=== PATIENT | female | born 1935 | race Caucasian/White ===

== ENCOUNTER 2017-06-16 11:38 | Inpatient (IN) | payer MEDICARE, OTHER ==
[2017-06-15 23:00] VITALS: BP 123/72
[~2017-06-16] VITALS: Ht 243.8 cm; Wt 65.3 kg
[2017-06-16] VITALS (10 sets, daily range): BP systolic 106–156; BP diastolic 54–90
[~2017-06-16 11:38] MED LIST: ACTOS30 MG OR; ACTOS30 MG PO; ALEVE220 MG PO; ALPRAZOLAM0.5 MG PO; AMLODIPINE BESYL5 MG PO; AMLODIPINE5 MG PO; AMOXICILLIN500 MG PO; AREDS2 PO; ASPIRIN ADULT L81 M2 PO; BETIMOL0.5 % OU; BL ADULT ASA81 MG PO; CALCI17 PO; CALCIU1 PO; CALCIUM600 M1 PO; CONTOUR NEXT TEST ST VI; CONTOUR TEST STRIPS OTHER; COZAAR100 MG PO; EFFEXOR37.5 MG PO; FLUZONE1 M1 IM; GENTAMICIN15 ML/BTL OP; JANUVIA100 MG PO; LANTUS100 MG/ML SC; LIPITOR20 M1 PO; LIPITOR20 MG OR; LIPITOR20 MG PO; LISINOPRIL2.5 MG PO; LOSARTAN POT50 MG PO; METFORMIN500 M1 PO; METFORMIN500 MG PO; MULTI-VITAMIN DAILY PO; MULTIVITAM10 OR; MULTIVITAMIN PO; NABUMETONE500 MG PO; NAPROSYN500 MG PO; NAPROXEN500 MG PO; OMEPRAZOLE20 MG PO; ONE-A-DAY PO; REXULTI0.5 MG PO; RISPERDAL0.25 MG PO; TEST STRIP; TIMOLOL 0.25%5 ML OU; TRAMADOL HCL50 MG PO; VENLAFAXINE HCL75 M2 PO; VENLAFAXINE150 MG PO; VITAMIN C TR1000 MG PO; VITAMIN D1000 UNI1 OR; VITAMIN D2000 UNI1 PO; VITAMIN D2000 UNIT PO; ZOLOFT100 MG PO; [UNRECOGNIZED DRUG - OTHER] PO; areds
--- NOTE | 2017-06-16 11:50 | NUR ---
PT TO ROOM FOR EXAM
[2017-06-16] MEDS ORDERED: TIMOLOL 0.5%5 ML OU (12:15)
--- NOTE | 2017-06-16 12:15 | NUR ---
INFORMED OF HR MAINTAINING IN THE 140'S. AWAITING NEW ORDERS.
[2017-06-16] MEDS ORDERED: VENLAFAXINE HCL75 M1 PO (12:19)
[2017-06-16 12:23] LABS: HEMATOCRIT 37.6 % (37.0-47.0); HEMOGLOBIN 12.1 g/dl (12.0-16.0); IMMATURE GRANULOCYTES 0.3 % (0.0-1.0); MEAN CELL VOLUME 93.1 fL CALC (80.0-100.0); MEAN CORPUSCULAR HGB CONC 32.2 g/L CALC (32.0-36.0); NEUT# 6.14 thou/uL (2.00-7.15); RED BLOOD COUNT 4.04 mill/uL (4.20-5.60); RED CELL DISTRI WIDTH 12.4 % (11.5-15.5)
[2017-06-16 12:35] LABS: ACT PARTIAL THROMBO TIME 28.2 SECONDS (20.0-32.5); PROTHROMBIN TIME 11.5 SECONDS (9.0-12.5)
[2017-06-16 12:42] LABS: ALBUMIN 4.4 g/dL (3.2-5.0); ALKALINE PHOSPHATASE 55 u/l (38-126); ANION GAP 18 (6-22 (CALC)); BILIRUBIN, TOTAL 0.4 mg/dL (0.0-1.4); BUN 33 mg/dL (8-23); BUN/CREATININE RATIO 38 (12-20 (CALC)); CARBON DIOXIDE 26 mmol/l (22-30); CHLORIDE 103 mmol/l (95-108); CREATININE 0.9 mg/dL (0.5-1.0); GFR 60 ML/MIN (>=60 (CALC)); GFR FOR AFR.AMER. > 60 ML/MIN (>=60 (CALC)); POTASSIUM 5.1 mmol/l (3.5-5.1); SGOT/AST 30 u/l (9-36); SGPT/ALT 25 u/l (11-66); SODIUM 143 mmol/l (137-146); TOTAL PROTEIN 7.7 g/dL (6.3-8.2)
[2017-06-16 12:45] LABS: MYOGLOBIN 44 ng/mL (0 - 62)
--- NOTE | 2017-06-16 13:00 | NUR ---
20 MG OF CARDIZEM IVP, HR BELOW 100 BPM AT THIS TIME. SECOND EKG COMPLETED, PAITENT TOLERATED WELL, CONTINUES TO DENY ANY CHEST PAIN AND SOB. MD INFORMED. CARDIZEM DRIP ON HOLD. WILL CONTINUE TO MONITOR.
--- NOTE | 2017-06-16 13:21 | NUR ---
SBAR PRINTED TO FLOOR
--- NOTE | 2017-06-16 14:23 | NUR ---
PT CAME BY STRETCHER BY JUAN JOSÉ MURRAY. PT AMBULATED TO BED WITH MINIAL ASSISTANCES. ORIENTED TO CALL LIGHT AND SAFETY PPRECAUTIONS REINFORCED. PT VERBALIZED UNDERSTANDING. CALL LIGHT IN REACH.
--- NOTE | 2017-06-16 14:24 | NUR ---
REPORT GIVEN TO JUAN JOSÉ VENTURA.
--- NOTE | 2017-06-16 14:30 | NUR ---
Admission Note Report Given to: SBAR PRINTED TO FLOOR Transported by: Wheelchair X Stretcher Transported with: X Nurse Transporter X Patent IV O2 X Size Worker
--- NOTE | 2017-06-16 14:33 | NUR ---
PATIENT TRANSPORTED TO [facility] WITH TELE IN PLACE VIA STRETCHER. BEDSIDE REPORT GIVEN TO JUAN JOSÉ VENTURA. CARE RELINQUISHED.
--- NOTE | 2017-06-16 15:21 | NUR ---
ASSESSMENT DONE AND TELE IN PLACE. RESPS EVEN AND UNLABORED. A&O X3. PT DENIES PAIN AT THIS TIME. PT STATED THAT SHE HAD BM IN THE AM TODAY. #20 LFA THAT APPEARS HEALTHY AND NS INFUSING WELL. CALL LIGHT IN REACH.
--- NOTE | 2017-06-16 16:30 | NUR ---
ASSIST PT BACK TO BED FROM THE BATHROOM . WITH NO S/S OF DISTRESS NOTED ON PT. PT DENIES ANY OTHER NEEDS AT THIS TIME. CALL LIGHT IN REACH.
--- NOTE | 2017-06-16 17:55 | NUR ---
ER CALLED RE: PT HEART 14O AND HIGH 158. PT DENIES PAIN AT THIS TIME.
--- NOTE | 2017-06-16 17:57 | NUR ---
VS OBTAIN HEART 140 AND NOTIFIED WALI RE: HEART RATE.
--- NOTE | 2017-06-16 18:15 | NUR ---
CALLED [facility] TO CHECK WHEN CARDIEM WILL BE VERIFY.THEY STATED WILL DUE NOW.
--- NOTE | 2017-06-16 18:31 | NUR ---
CARDIEM GIVEN SEE EMAR FOR HEART RATE. JUAN JOSÉ PONCE AT BEDSIDE AND CALLED ER.
--- NOTE | 2017-06-16 18:41 | NUR ---
CALLED ER RE: PT HEART RATE PER [facility] PT HEART RATE IS 130. NOTIFIED WALI.
--- NOTE | 2017-06-16 18:50 | NUR ---
CALL DR. WEI BUT NO ANSWER LEFT A MESSAGE TO CALL BACK.
--- NOTE | 2017-06-16 19:05 | NUR ---
DR. WEI CALLED. TOLD RE: PT HEART RATE BEING 130 AFTER GIVEN CARDIEM. STATED PT TO BE TRANFER TO ICU.
--- NOTE | 2017-06-16 19:15 | NUR ---
PT TRANFER TO ICU BY BED AND TELE IN PLACE. GAVE REPORT TO JUAN JOSÉ LINTON FROM ICU RE: PT HEART RATE.
--- NOTE | 2017-06-16 19:15 | NUR ---
PT. ARRIVES FROM MED/SURG AT THIS TIME VIA BED. PLACED ON TELEMETRY AND FOUND TO BE IN A-FIB WITH RATE IN THE 140-160'S. PT. DENIES SYMPTOMS. DENIES CP OR SOB. MAE. LIU. NO NEURO DEFICITS NOTED. INTRODUCED SELF TO PATIENT AND ORIENTED TO ROOM AND MONITOR/CALL LIGHT SYSTEMS. PROVIDED WITH WATER AND UPDATED ON PLAN OF CARE FOR THE EVENING. LUNG SOUNDS CLEAR TO AUSCULTATION, NO EDEMA NOTED. RADIAL PULSES INTACT. CALL LIGHT PLACED WITHIN REACH AND WILL CONTINUE TO MONITOR.
--- NOTE | 2017-06-16 20:30 | NUR ---
PT. CONTINUES TO DENY PAIN OR NEED. CHANGED ORDERS FROM AMIODARONE DRIP TO CARDIZEM DRIP. WILL ADMINISTER MEDICATIONS WHEN PHARMACY PROFILES MEDICATION. PT. REMAINS STABLE AND PAIN FREE. VSS.
--- NOTE | 2017-06-16 21:15 | NUR ---
CARDIZEM BOLUS OF 10 MG GIVEN AT THIS TIME AND DRIP INITIATED AT 10 MG/HR. PT. REMAINS IN A-FIB BETWEEN 110-160. PT. DENIES SX AT THIS TIME. CALL LIGHT REMAINS WITHIN REACH. RESPS REMAIN EVEN AND UNLABORED. BP STABLE. WILL CONTINUE TO ASSESS.
--- NOTE | 2017-06-16 22:30 | NUR ---
PT. RESTING WITH EYES CLOSED. EASILY AROUSABLE TO LIGHT VERBAL STIMULI. CALL LIGHT REMAINS WITHIN REACH. RESPS REMAIN EVEN AND UNLABORED. CARDIZEM DRIP CONTINUES TO INFUSE AT 10 MG/HR. WILL CONTINUE TO MONITOR.
[2017-06-17] VITALS (21 sets, daily range): BP systolic 103–156; BP diastolic 51–101
--- NOTE | 2017-06-17 00:15 | NUR ---
PT. HR AND BP STABLE. HR IN THE 60-70'S REMAINS A-FIB. CARDIZEM DRIP DECREASED TO 5 MG/HR AT THIS TIME. WILL CONTINUE TO MONITOR AND ASSESS.
--- NOTE | 2017-06-17 02:35 | NUR ---
PT. RESTING IN BED IN NO DISTRESS. RESPS REMAIN EVEN AND UNLABORED. SKIN WARM AND DRY. CALL LIGHT REMAINS WITHIN REACH. WILL CONTINUE TO MONITOR.
--- NOTE | 2017-06-17 03:55 | NUR ---
PT. ASSISTED TO BEDSIDE COMMODE AT THIS TIME. AMBULATORY WITH STEADY GAIT FROM BED TO COMMODE. APPROX 700 CC OUT AT THIS TIME. REMAINED STABLE ON THE MONITOR. CALL LIGHT REMAINS WITHIN REACH. RESPS REMAIN EVEN AND UNLABORED. WILL CONTINUE TO MONITOR.
--- NOTE | 2017-06-17 04:57 | NUR ---
PT. SITTING UP IN BED IN NO DISTRESS. CALL LIGHT REMAINS WITHIN REACH. HR REMAINS STABLE A-FIB IN THE 70'S. CALL LIGHT REMAINS WITHIN REACH. WILL CONTINUE TO ASSESS.
[2017-06-17 05:44] LABS: ANION GAP 17 (6-22 (CALC)); BUN 20 mg/dL (8-23); BUN/CREATININE RATIO 27 (12-20 (CALC)); CALCULATED LDLCHOLESTEROL 53 mg/dL (62-129 (CALC)); CARBON DIOXIDE 25 mmol/l (22-30); CHLORIDE 109 mmol/l (95-108); CHOLESTEROL HDL RATIO 2.9 (<4.4 (CALC)); CREATININE 0.7 mg/dL (0.5-1.0); GFR > 60 ML/MIN (>=60 (CALC)); GFR FOR AFR.AMER. > 60 ML/MIN (>=60 (CALC)); HDL CHOLESTEROL 41 mg/dL (>=40); MAGNESIUM 1.5 mg/dL (1.6-2.3); POTASSIUM 4.4 mmol/l (3.5-5.1); SODIUM 146 mmol/l (137-146); TOTAL CHOLESTEROL 117 mg/dl (0-199); TOTAL TRIGLYCERIDES 118 mg/dl (30-149); VLDL CHOLESTROL 24 mg/dl (0-48 (CALC))
[2017-06-17 05:55] LABS: HEMATOCRIT 37.5 % (37.0-47.0); MEAN CELL VOLUME 94.5 fL CALC (80.0-100.0); MEAN CORPUSCULAR HGB 30.2 pG CALC (26.0-32.0); RED BLOOD COUNT 3.97 mill/uL (4.20-5.60); RED CELL DISTRI WIDTH 12.3 % (11.5-15.5)
--- NOTE | 2017-06-17 06:05 | NUR ---
PT. ACCUCHECK ON THE DRAW WAS 56. PT. DENIES SYMPTOMS. PROVIDED WITH APPLE JUICE AT THIS TIME PER HER REQUEST. DENIES OTHER COMPLAINTS. STATES SHE DID NOT TAKE ANY DIABETES MEDS LAST NIGHT.
--- NOTE | 2017-06-17 07:10 | NUR ---
PT ALERT AND ORIENTED SITTING UP IN BED, PT COMPLAINS OF MILD CHEST PAIN/PRESSURE WITH DEEP BREATHING AND GENERAL DISCOMFORT "AND IT SCARED ME A LITTLE BIT" AM ASSESSMENT COMPETED, SEE INTERVENTIONS, TELE READING SR (WILL ORDER EKG PT WAS IN A FIB) BP STABLE, TEMP 97.0 ACCU CHECK COMPLETED (PT IDDM) BS WAS 74, PT VERBALIZES BEING SAD RELATED TO ADMISSION (I JUST WENT FOR A REGULAR VISIT AND SHE TOLD ME I HAD TO COME INTO THE HOSPITAL) CARDIZEM PLACED ON HOLD RELATED TO CONVERSION, BS ACTIVE PT DENIES N/V OR ANY OTHER SYMPTOMS, TROPONIN ORDERED FOR [phone] TROP RESTULS WAS NEGATIVE, COMFORT MEASURES PROVIDED, SAFETY MEASURES REINFORCED, CALL SANDY WITHIN REACH, WILL MONITOR CLOSELY.
--- NOTE | 2017-06-17 07:25 | NUR ---
EKG COMPLETED PT SLIGHTLY TEARY EYED AND STATES DISCOMFORT HASN'T WORSENED, AND IS MINIMALLY IMPROVED, NO S/S OF DISTRESS NOTED, COMFORT MEASURES PROVIDED SET UP ASSIST FOR AM MEAL PROVIDED, CALL SANDY WITHIN REACH
--- NOTE | 2017-06-17 07:25 | NUR ---
PLACED ON NASAL CANNULA 2L FOR CARDIAC PROTOCOL
--- NOTE | 2017-06-17 07:55 | NUR ---
LAB BRUCE TROPONIN ORDERED, PT TOLERATED W/O INCIDENT, WILL START IV MAGENSIUM ORDERED, PT EDUCATED REGAREDING MEDICATION, REASON FOR ADMINISTRATION, EXPECTATIONS, AND POSSIBLE SIDE EFFECTS, PT VERBALIZES UNDERSTANDING.
--- NOTE | 2017-06-17 08:35 | NUR ---
TOLERATING MAGNESIUM IV W/O INCIDENT, APPETITE ADEQUATE FOR AM MEAL, CALL SANDY WITHIN REACH
--- NOTE | 2017-06-17 09:21 | NUR ---
IN TO SEE PATIENT, AWARE OF CP, CONVERSION TO SR, CARDIZEM GTT ON HOLD AND NEGATIVE REPEAT TROPONIN, PLAN OF CARE DISCUSSED.
--- NOTE | 2017-06-17 10:30 | NUR ---
Pt resting, wathcing television, states pain slightyl improved and no worse, consulted and pt aware. Call mcmanus within reach
--- NOTE | 2017-06-17 11:39 | NUR ---
visitors at bedside, accu check insulin coverage given as ordered; IV mag continues w/o incident; set up assist provided for afternoon meal.
--- NOTE | 2017-06-17 12:20 | NUR ---
pt oob to bsc with LOAN OFFICER stand by assist, tolerated well, back to bed with same after continent of urine, provides own oscar care, call mcmanus within [facility], states she contineus to have the chest discomfort, will continue to monitor remains in SR rate in the 70-80's.
--- NOTE | 2017-06-17 13:15 | NUR ---
INTO SEE PATIENT, PLAN OF CARE DISCUSSED INCLUDING ECHO THIS AFTERNOON/PM, PT REQUESTING TO GETT OOB TO RECLINER, DONE WITH STAND BY ASSIST, CALL SANDY WITHIN REACH.
--- NOTE | 2017-06-17 14:33 | NUR ---
PT EDUCATED REGARDING ATRIAL FIBRILLATION AND NEW MEDICATIONS, PRINTED INFORMTAION PROVIDED WELL, ALL QUESTIONS ANSWERED, PT REMAINS SITTING UP IN RECLINER AT BEDSIDE, CALL SANDY WITHIN REACH
--- NOTE | 2017-06-17 16:34 | NUR ---
pt assisted back to bed, tolerates activity well, again asks about ECHO being completed this pm, and will she get to go home, educated regarding D/C process, call mcmanus within reach.
--- NOTE | 2017-06-17 17:18 | NUR ---
PT TO ULTRASOUND VIA WHEELCHAIR FOR ECHO ORDERED, PT STOOD AND AMBULATED TO WHEELCHAIR WITH STAND BY ASSIST AND TOELRATED ACTIVITY WELL, PT REMAINS ALERT AND ORIENTED AND OFFERS NO NEW COMPLAINTS, AGAIN VERBALIZE "I HOPE HE LETS ME GO HOME TONIGHT", WILL CONTINUE TO MONITOR.
--- NOTE | 2017-06-17 18:08 | NUR ---
PT BACK FROM ECHO SITTING UP ON EDGE OF BED EATING PM MEAL. PT AWARE OF NO D/C ORDERS, SLIGHTLY ANXIOUS, STATING SHE REALLY WAS HOPING TO GO HOME TONIGHT BUT VERBALIZES UNDERSTANDING.
--- NOTE | 2017-06-17 18:30 | NUR ---
PT OOB TO BSC, TOLERATED ACTIVITY WELL, CALL SANDY WITHIN REACH
--- NOTE | 2017-06-17 19:00 | NUR ---
REPORT FROM JUAN JOSÉ BROWN. ASSUMED PT. CARE.
--- NOTE | 2017-06-17 19:10 | NUR ---
PT. FOUND AWAKE, ALERT, ORIENTED X 3. SKIN WARM AND DRY. NOE. RESPS REMAIN EVEN AND UNLABORED. NO EDEMA NOTED. LUNGS CTA. PULSES INTACT THROUGHOUT. CALL LIGHT WITHIN REACH.
--- NOTE | 2017-06-17 19:30 | NUR ---
PT. C/O MILD NAUSEA AT THIS TIME. NEW ORDERS RECEIVED AND FAXED TO PHARMACY. WILL MEDICATE ORDERED AND PRN.
--- NOTE | 2017-06-17 20:45 | NUR ---
ACCUCHECK 74. PROVIDED WITH HS SNACK. NO COVERAGE PROVIDED. IV ZITHROMAX INFUSED. NO REACTIONS NOTED. WATER PITCHER REFILLED AT THIS TIME. MEDICATED WITH HS MEDS. CALL LIGHT REMAINS WITHIN REACH. LIGHTS DIMMED FOR COMFORT.
--- NOTE | 2017-06-17 22:30 | NUR ---
PT. AWAKE, ALERT, ORIENTED X 3. WATCHING TELEVISION AT THIS TIME. DENIES COMPLAINTS OF NAUSEA OR PAIN AT THIS TIME. RESPS REMAIN EVEN AND UNLABORED. REMAINS AFEBRILE. CALL LIGHT REMAINS WITHIN REACH. WILL CONTINUE TO MONITOR.
[2017-06-18] VITALS: BP 117/64
--- NOTE | 2017-06-18 01:02 | NUR ---
PT. ASSISTED TO BEDSIDE COMMODE AT THIS TIME. FOUND WITH COPIOUS SWEATING. ASSISTED TO WASH UP AT THIS TIME. GOWN AND LINENS CHANGED AT THIS TIME. TEMP NOW 97.0. REMAINS ALERT, ORIENTED X 3. RESPS REMAIN EVEN AND UNLABORED. DENIES COMPLAINTS OF PAIN OR NEED. PT. AMBULATORY WITH STEADY GAIT BACK TO BED AND WILL PLACED BACK ON MONITOR.
[2017-06-18 02:00] VITALS: BP 121/56
--- NOTE | 2017-06-18 02:08 | NUR ---
PT. RESTING WITH EYES CLOSED IN NO DISTRESS. CALL LIGHT REMAINS WITHIN REACH.
--- NOTE | 2017-06-18 03:22 | NUR ---
PT. REMAINS IN SINUS RHYTHM AT THIS TIME. RESPS REMAIN EVEN AND UNLABORED. VSS. VOICES NO COMPLAINTS OR NEEDS. CALL LIGHT REMAINS WITHIN REACH.
[2017-06-18 04:00] VITALS: BP 125/51
--- NOTE | 2017-06-18 04:48 | NUR ---
LAB AT BEDSIDE AT THIS TIME. PT. REMAINS SINUS IN THE MID 80'S AT THIS TIME. REMAINS ORIENTED X 3. SKIN WARM AND DRY. REMAINS AFEBRILE. RESPS REMAIN EVEN AND UNLABORED. CALL LIGHT REMAINS WITHIN REACH.
[2017-06-18 05:06] LABS: HEMATOCRIT 36.4 % (37.0-47.0); HEMOGLOBIN 11.9 g/dl (12.0-16.0); MEAN CELL VOLUME 93.6 fL CALC (80.0-100.0); MEAN CORPUSCULAR HGB 30.6 pG CALC (26.0-32.0); MEAN CORPUSCULAR HGB CONC 32.7 g/L CALC (32.0-36.0); RED BLOOD COUNT 3.89 mill/uL (4.20-5.60); RED CELL DISTRI WIDTH 12.4 % (11.5-15.5)
[2017-06-18 06:00] VITALS: BP 135/58
[2017-06-18 06:08] LABS: ANION GAP 18 (6-22 (CALC)); BUN 15 mg/dL (8-23); BUN/CREATININE RATIO 24 (12-20 (CALC)); CARBON DIOXIDE 25 mmol/l (22-30); CHLORIDE 104 mmol/l (95-108); CREATININE 0.7 mg/dL (0.5-1.0); GFR > 60 ML/MIN (>=60 (CALC)); GFR FOR AFR.AMER. > 60 ML/MIN (>=60 (CALC)); SODIUM 142 mmol/l (137-146)
--- NOTE | 2017-06-18 06:08 | NUR ---
PT. PROVIDED WITH WARM BLANKET PER HER REQUEST. REMAINS STABLE. AWAKE, ALERT, ORIENTED X 3. VSS.
[2017-06-18 06:16] LABS: MAGNESIUM 2.2 mg/dL (1.6-2.3)
--- NOTE | 2017-06-18 07:15 | NUR ---
PT ALERT AND ORIENTED SITTING UP IN BED, PT STATES THAT MILD CHEST PAIN/PRESSURE WITH DEEP BREATHING AND GENERAL DISCOMFORT SHE HAD YESTERDAY IS GONE AT THIS TIME; AM ASSESSMENT COMPETED, SEE INTERVENTIONS, TELE READING SR RATE IN THE 90-100'S BP STABLE, TEMP 97.4 (FEBRILE LAST PM) ACCU CHECK COMPLETED (PT IDDM) BS WAS 187 WILL COVER ORDERED, BS ACTIVE; 2 BM'S LAST PM PER REPORT, DENIES N/V AT THIS TIME, COMFORT MEASURES PROVIDED, SAFETY MEASURES REINFORCED, CALL SANDY WITHIN REACH, WILL MONITOR CLOSELY.
--- NOTE | 2017-06-18 07:29 | NUR ---
PT OOB TO BSC WITH STAND BY ASSIST, TOLERATES ACTVITY WELL, CALL SANDY WITHIN REACH, INSULIN COVERAGE GIVEN EARLIER ORDERED, PT ASKING ABOUT D/C TODAY, EDUCATED AGAIN REGARDING D/C PROCESS, PT VERBALIZES UNDERSTANDING, WILL CONTINUE TO MONITOR.
--- NOTE | 2017-06-18 07:35 | NUR ---
PT BACK TO BED WITH KERA ASSIST, SET UP ASSIST PROVIDED FOR AM MEAL, PT TOLERATED W/O INCIDENT, CONTINENT OF LARGE AMOUNT CLEAR FABIANO URINE AND VERY SMALL FORMED BM, PROVIDED OWN ISABEL [facility]ARE, CALL SANDY WITHIN REACH
[2017-06-18 08:00] VITALS: BP 140/51
[2017-06-18 08:46] VITALS: BP 135/58
[2017-06-18] MEDS ORDERED: MAG-OX 400400 MG PO (09:06)
[2017-06-18] MEDS ORDERED: ZITHROMAX250 MG PO (09:06)
[2017-06-18] MEDS ORDERED: PREDNISONE10 MG PO (09:06)
[2017-06-18] MEDS ORDERED: ELIQUIS5 MG PO (09:06)
[2017-06-18] MEDS ORDERED: LOPRESSOR 550 MG/TAB PO (09:06)
--- NOTE | 2017-06-18 09:34 | NUR ---
Discharge instructions given. Patient verbalizes understanding of same. Discharged in stable condition via Wheelchair to Home with family. All belongings sent with pt. SCRIPTS FOR MEDICATIONS SENT WITH PATIENT WELL.
== END 2017-06-18 09:35 | disposition home or self-care (01) | DRG 310 ==
LOC: ED 11:38 → ED-I 13:17 → ED 13:50 → MS2 13:51 → ICU 19:22
PROVIDERS: Emergency Medicine; ADMIT Internal Medicine; ATTEND Internal Medicine
DX: I48.92 Unspecified atrial flutter (principal); E11.9 Type 2 diabetes mellitus without complications; I10 Essential (primary) hypertension; E78.5 Hyperlipidemia, unspecified; R09.1 Pleurisy; F32.9 Major depressive disorder, single episode, unspecified; Z79.4 Long term (current) use of insulin
CPT/HCPCS: J1160; J1650; J3475

== ENCOUNTER 2018-02-16 12:18 | Emergency (ER) | payer MEDICARE, OTHER ==
[~2018-02-16] VITALS: Ht 256.5 cm; Wt 59.1 kg
[~2018-02-16 12:18] MED LIST changes: +ELIQUIS5 MG PO; +LOPRESSOR 550 MG/TAB PO; +MAG-OX 400400 MG PO; +PREDNISONE10 MG PO; +TIMOLOL 0.5%5 ML OU; +VENLAFAXINE HCL75 M1 PO; +ZITHROMAX250 MG PO
[2018-02-16 13:05] VITALS: BP 124/62
== END 2018-02-16 13:12 | disposition home or self-care (01) ==
LOC: ED 12:18
PROC: 0HQ0XZZ Repair Scalp Skin, External Approach (ICD-10-PCS; principal; 2018-02-16)
DX: S01.01XD Laceration without foreign body of scalp, subsequent encounter (principal)

== ENCOUNTER 2019-03-11 21:12 | Emergency (ER) | payer MEDICARE, OTHER ==
[~2019-03-11] VITALS: Ht 160 cm; Wt 65.0 kg
[2019-03-11 21:50] LABS: HEMATOCRIT 40.1 % (37.0-47.0); HEMOGLOBIN 13.4 g/dl (12.0-16.0); IMMATURE GRANULOCYTES 0.5 % (0.0-5.0); MEAN CELL VOLUME 89.3 fL CALC (80.0-100.0); MEAN CORPUSCULAR HGB 29.8 pG CALC (26.0-32.0); MEAN CORPUSCULAR HGB CONC 33.4 g/L CALC (32.0-36.0); NEUT# 14.01 thou/uL (2.00-7.15); RED BLOOD COUNT 4.49 mill/uL (4.20-5.60); RED CELL DISTRI WIDTH 11.9 % (11.5-15.5)
[2019-03-11 22:05] LABS: ALBUMIN 4.9 g/dL (3.2-5.0); ALKALINE PHOSPHATASE 91 u/l (38-126); ANION GAP 19 (6-22 (CALC)); BILIRUBIN, TOTAL 0.5 mg/dL (0.0-1.4); BUN 21 mg/dL (8-23); BUN/CREATININE RATIO 42 (12-20 (CALC)); CARBON DIOXIDE 25 mmol/l (22-30); CHLORIDE 98 mmol/l (95-108); CREATININE 0.5 mg/dL (0.5-1.0); ETHYL ALCOHOL 0 mg/dl (0-30); GFR > 60 ML/MIN (>=60 (CALC)); GFR FOR AFR.AMER. > 60 ML/MIN (>=60 (CALC)); POTASSIUM 4.1 mmol/l (3.5-5.1); SGOT/AST 28 u/l (9-36); SODIUM 137 mmol/l (137-146); TOTAL PROTEIN 8.7 g/dL (6.3-8.2)
[2019-03-11] MEDS ORDERED: EFFEXOR37.5 MG PO (22:42)
[2019-03-11] MEDS ORDERED: ELIQUIS2.5 MG PO (22:45)
[2019-03-12 01:54] LABS: URINE BILIRUBIN - DIPSTICK NEGATIVE (NEGATIVE); URINE BLOOD DIPSTICK NEGATIVE (NEGATIVE); URINE COLOR YELLOW; URINE GLUCOSE - DIPSTICK 100 mg/dL (NEGATIVE); URINE KETONE 15 mg/dL (NEGATIVE); URINE LEUK ESTERASE TRACE (NEGATIVE); URINE NITRITE - DIPSTICK NEGATIVE (Negative); URINE PROTEIN - DIPSTICK NEGATIVE (NEG-TRACE); URINE SPECIFIC GRAVITY 1.015; URINE UROBILINOGEN - DIPSTICK 0.2 E.U./dL (0.2)
[2019-03-12 03:05] VITALS: BP 185/73
== END 2019-03-12 02:20 | disposition short-term general hospital (02) ==
LOC: ED 21:12
PROVIDERS: Emergency Medicine
DX: S72.001A Fracture of unspecified part of neck of right femur, initial encounter for closed fracture (principal); E11.65 Type 2 diabetes mellitus with hyperglycemia; D72.829 Elevated white blood cell count, unspecified; I10 Essential (primary) hypertension; W18.30XA Fall on same level, unspecified, initial encounter; Y92.007 Garden or yard of unspecified non-institutional (private) residence as the place of occurrence of the external cause; Z79.4 Long term (current) use of insulin

== ENCOUNTER 2021-11-21 14:13 | Emergency (ER) | payer MEDICARE ==
[2021-11-21] VITALS (7 sets, daily range): BP systolic 137–170; BP diastolic 55–130
[~2021-11-21] VITALS: Ht 160 cm; Wt 56.8 kg
[~2021-11-21 14:13] MED LIST changes: +ELIQUIS2.5 MG PO
[2021-11-21] MEDS ORDERED: ESCITALOPRAM OX10 MG PO (15:28)
[2021-11-21] MEDS ORDERED: CALCIUM500 M5 PO (15:28)
[2021-11-21] MEDS ORDERED: NAPROXEN500 MG PO (15:32)
== END 2021-11-21 15:58 | disposition home or self-care (01) ==
LOC: ED 14:13
DX: S42.302A Unspecified fracture of shaft of humerus, left arm, initial encounter for closed fracture (principal); S80.11XA Contusion of right lower leg, initial encounter; I10 Essential (primary) hypertension; E11.9 Type 2 diabetes mellitus without complications; W06.XXXA Fall from bed, initial encounter; Y93.89 Activity, other specified; Y92.003 Bedroom of unspecified non-institutional (private) residence as the place of occurrence of the external cause; Z79.4 Long term (current) use of insulin; Z79.84 Long term (current) use of oral hypoglycemic drugs